=== PATIENT | female | born 1945 | race Native Hawaiian/Other Pacific Islander ===

== ENCOUNTER 2017-02-06 08:43 | Outpatient (CLI) | payer OTHER ==
[~2017-02-06 08:43] MED LIST: ASA LOW STR81 MG PO; B-1250 MCG OR; CETI10TA PO; DONNATA1 OR; GUAI600T70 PO; HYDR12.54; ICAPS MV OR; LEVO0.0723 PO; LEVO0.08 PO; LIPITOR20 MG PO; MEDROL DOSEPAK4 MG OR; NEXIUM40 M1 PO; OMEGA 31000 MG OR; POLY3350; PROPRANOLOL10 MG PO; RESTASIS0.05 % OP; SUCRALFATE1 GM OR; TIOTCAP2 INH; VALS80CA2 PO
== END 2017-02-06 19:04 | disposition home or self-care (01) ==
LOC: LABW 08:43
DX: E03.8 Other specified hypothyroidism (principal)
CPT/HCPCS: 36415; 84436; 84443; 84479

== ENCOUNTER 2017-03-03 11:50 | Outpatient (CLI) | payer OTHER | END 2017-03-03 12:50 | disposition home or self-care (01) | LOC: LAB 11:50 | DX: K52.9 Noninfective gastroenteritis and colitis, unspecified (principal) | CPT/HCPCS: 82272; 87045; 87205; 87328; 87329; 87493; 87798; 87899 ==

== ENCOUNTER 2017-03-23 08:29 | Outpatient (CLI) | payer OTHER | END 2017-03-23 19:05 | disposition home or self-care (01) | LOC: LABW 08:29 → CT 09:30 → LABW 19:05 | DX: E03.8 Other specified hypothyroidism (principal); J41.1 Mucopurulent chronic bronchitis | CPT/HCPCS: 36415; 84436; 84443; 84480 ==

== ENCOUNTER 2017-05-26 08:34 | Outpatient (CLI) | payer OTHER ==
[2017-05-26 09:11] LABS: PLATELET COUNT 220 K/uL (152-353)
[2017-05-26 09:36] LABS: POTASSIUM 3.8 mmol/L (3.6-5.2); SODIUM 140 mmol/L (136-145)
== END 2017-05-26 19:31 | disposition home or self-care (01) ==
LOC: LABW 08:34
PROVIDERS: Internal Medicine
DX: I10 Essential (primary) hypertension (principal); E55.9 Vitamin D deficiency, unspecified; E03.8 Other specified hypothyroidism; R82.99 Other abnormal findings in urine
CPT/HCPCS: 36415; 80053; 80061; 81000; 82306; 84439; 84443; 85027; 87086; 87088

== ENCOUNTER 2017-08-25 07:56 | Outpatient (CLI) | payer OTHER | END 2017-08-25 19:05 | disposition home or self-care (01) | LOC: RESP 07:56 | DX: J44.9 Chronic obstructive pulmonary disease, unspecified (principal) | CPT/HCPCS: 94640; 94664 ==

== ENCOUNTER 2017-10-11 08:54 | Outpatient (CLI) | payer OTHER ==
[2017-10-11 09:41] LABS: PLATELET COUNT 219 K/uL (152-353)
[2017-10-11 09:44] LABS: POTASSIUM 3.9 mmol/L (3.6-5.2); SODIUM 138 mmol/L (136-145)
== END 2017-10-11 10:20 | disposition home or self-care (01) ==
LOC: LABW 08:54
PROVIDERS: Internal Medicine
DX: I10 Essential (primary) hypertension (principal); I65.29 Occlusion and stenosis of unspecified carotid artery
CPT/HCPCS: 36415; 80053; 80061; 81000; 84439; 84443; 85027

== ENCOUNTER 2018-01-28 10:28 | Outpatient (CLI) | payer OTHER ==
[2018-01-28 11:03] LABS: PLATELET COUNT 217 K/uL (152-353)
== END 2018-01-28 11:28 | disposition home or self-care (01) ==
LOC: LABW 10:28
PROVIDERS: Internal Medicine
DX: D64.89 Other specified anemias (principal); E03.8 Other specified hypothyroidism
CPT/HCPCS: 36415; 84439; 84443; 85027

== ENCOUNTER 2018-06-01 08:22 | Outpatient (CLI) | payer OTHER ==
[2018-06-01 09:05] LABS: PLATELET COUNT 226 K/uL (152-353)
== END 2018-06-01 22:07 | disposition home or self-care (01) ==
LOC: LABW 08:22
PROVIDERS: Internal Medicine
DX: I10 Essential (primary) hypertension (principal); D64.89 Other specified anemias; E03.8 Other specified hypothyroidism; R82.99 Other abnormal findings in urine
CPT/HCPCS: 36415; 80053; 80061; 81000; 82306; 84443; 85027; 87077; 87086; 87088; 87185

== ENCOUNTER 2018-07-07 10:44 | Outpatient (CLI) | payer OTHER | END 2018-07-07 23:16 | disposition home or self-care (01) | LOC: RESP 10:44 | DX: J44.9 Chronic obstructive pulmonary disease, unspecified (principal); J43.2 Centrilobular emphysema ==

== ENCOUNTER 2018-07-11 12:31 | Outpatient (CLI) | payer OTHER | END 2018-07-11 21:15 | disposition home or self-care (01) | LOC: RAD 12:31 | DX: M54.2 Cervicalgia (principal) ==

== ENCOUNTER 2018-08-19 10:15 | Observation (INO) | payer OTHER ==
[~2018-08-19] VITALS: Ht 163.8 cm; Wt 54.7 kg
[2018-08-19 14:06] LABS: POTASSIUM 3.4 mmol/L (3.6-5.2)
[2018-08-19 14:13] LABS: PLATELET COUNT 219 K/uL (152-353)
[2018-08-19 14:22] LABS: PARTIAL THROMBOPLASTIN TIME 24.5 SECONDS (24.5-33.6)
[2018-08-19 14:44] VITALS: BP 132/60; TEMP 97.9; Ht 163.8 cm; Wt 54.7 kg
[2018-08-19 16:00] VITALS: BP 132/60; TEMP 97.9
[2018-08-19 20:00] VITALS: BP 107/63; TEMP 97.9
[2018-08-20 00:11] VITALS: BP 120/68; TEMP 97.5
[2018-08-20 04:00] VITALS: BP 99/57; TEMP 98.3
[2018-08-20 05:30] LABS: PLATELET COUNT 164 K/uL (152-353)
[2018-08-20 05:38] LABS: POTASSIUM 3.4 mmol/L (3.6-5.2)
[2018-08-20 08:24] VITALS: BP 116/52; TEMP 98.1
[2018-08-20 12:15] VITALS: TEMP 96.8
== END 2018-08-20 11:10 | disposition home or self-care (01) ==
LOC: MED/SURG 10:15
PROVIDERS: ADMIT Internal Medicine
DX: M94.0 Chondrocostal junction syndrome [Tietze] (principal); R07.89 Other chest pain; I10 Essential (primary) hypertension; I25.10 Atherosclerotic heart disease of native coronary artery without angina pectoris; E78.4 Other hyperlipidemia; E03.8 Other specified hypothyroidism; K21.9 Gastro-esophageal reflux disease without esophagitis; J44.9 Chronic obstructive pulmonary disease, unspecified; E78.00 Pure hypercholesterolemia, unspecified
CPT/HCPCS: 36415; 36591; 80053; 82550; 84484; 85027; 85610; 85730; 93005; 96374; 96375; 99220; G0378; G0379; J1650

== ENCOUNTER 2018-09-22 09:19 | Outpatient (CLI) | payer OTHER | END 2018-09-22 19:20 | disposition home or self-care (01) | LOC: LABW 09:19 | DX: E03.8 Other specified hypothyroidism (principal) | CPT/HCPCS: 36415; 84436; 84443; 84479 ==

== ENCOUNTER 2019-01-11 10:13 | Outpatient (CLI) | payer OTHER | END 2019-01-11 23:59 | disposition home or self-care (01) | LOC: LABW 10:13 | PROVIDERS: Internal Medicine Cardiovascular Disease | DX: E78.5 Hyperlipidemia, unspecified (principal) | CPT/HCPCS: 36415; 80061 ==

== ENCOUNTER 2019-01-11 19:27 | Emergency (ER) | payer OTHER ==
[~2019-01-11] VITALS: Ht 163.8 cm; Wt 54.4 kg
[2019-01-11 19:53] VITALS: TEMP 97.9
[2019-01-11 20:09] LABS: PLATELET COUNT 195 K/uL (152-353)
[2019-01-11 23:22] VITALS: BP 137/78
== END 2019-01-11 23:23 | disposition home or self-care (01) ==
LOC: ED 19:27
PROVIDERS: Emergency Medicine
DX: R07.89 Other chest pain (principal); K21.9 Gastro-esophageal reflux disease without esophagitis; I49.8 Other specified cardiac arrhythmias
CPT/HCPCS: 36415; 80053; 82550; 82553; 84484; 85027; 93005; 96374; 99284; J2270

== ENCOUNTER 2019-01-16 09:31 | Outpatient (CLI) | payer OTHER ==
[2019-01-16 10:19] LABS: POTASSIUM 4.1 mmol/L (3.6-5.2)
== END 2019-01-16 19:57 | disposition home or self-care (01) ==
LOC: LABW 09:31
PROVIDERS: Internal Medicine
DX: E87.6 Hypokalemia (principal); K21.9 Gastro-esophageal reflux disease without esophagitis; E03.9 Hypothyroidism, unspecified
CPT/HCPCS: 36415; 80053; 83735; 84439; 84443

== ENCOUNTER 2019-04-28 14:15 | Outpatient (CLI) | payer OTHER | END 2019-04-28 19:24 | disposition home or self-care (01) | LOC: RAD 14:15 | DX: J40 Bronchitis, not specified as acute or chronic (principal) ==

== ENCOUNTER 2019-07-17 15:20 | Outpatient (CLI) | payer OTHER | END 2019-07-17 18:00 | disposition home or self-care (01) | LOC: RAD 15:20 | DX: M54.2 Cervicalgia (principal); M25.511 Pain in right shoulder ==

== ENCOUNTER 2019-07-20 10:49 | Outpatient (CLI) | payer OTHER ==
[2019-07-20 11:28] LABS: POTASSIUM 3.7 mmol/L (3.6-5.2)
[2019-07-20 11:54] LABS: PLATELET COUNT 211 K/uL (152-353)
== END 2019-07-20 20:31 | disposition home or self-care (01) ==
LOC: LABW 10:49
PROVIDERS: Physician Assistant
DX: B00.89 Other herpesviral infection (principal)
CPT/HCPCS: 36415; 80053; 85007; 85027; 86618

== ENCOUNTER 2019-07-21 09:15 | Outpatient (CLI) | payer OTHER | END 2019-07-21 21:00 | disposition home or self-care (01) | LOC: LABW 09:15 | PROVIDERS: Physician Assistant | DX: B00.89 Other herpesviral infection (principal); E78.49 Other hyperlipidemia; E03.8 Other specified hypothyroidism; E55.9 Vitamin D deficiency, unspecified | CPT/HCPCS: 36415; 80061; 82306; 84443 ==

== ENCOUNTER 2019-10-05 11:33 | Emergency (ER) | payer OTHER ==
[~2019-10-05] VITALS: Ht 162.6 cm; Wt 54.9 kg
[2019-10-05 11:44] VITALS: TEMP 97.7
[2019-10-05 12:59] LABS: PLATELET COUNT 202 K/uL (152-353)
[2019-10-05 13:24] LABS: POTASSIUM 3.6 mmol/L (3.6-5.2)
[2019-10-05 14:45] VITALS: BP 150/74
== END 2019-10-05 14:45 | disposition home or self-care (01) ==
LOC: ED 11:33
PROVIDERS: Emergency Medicine Emergency Medical Services
DX: R51 Headache (principal); I10 Essential (primary) hypertension
CPT/HCPCS: 80053; 82550; 85027; 93005; 99283

== ENCOUNTER 2019-10-08 09:32 | Outpatient (CLI) | payer OTHER | END 2019-10-08 19:23 | disposition home or self-care (01) | LOC: LABW 09:32 | DX: E03.8 Other specified hypothyroidism (principal) | CPT/HCPCS: 36415; 84436; 84443; 84479 ==

== ENCOUNTER 2020-07-09 10:13 | Outpatient (CLI) | payer OTHER | END 2020-07-09 20:48 | disposition home or self-care (01) | LOC: CT 10:13 | DX: G44.211 Episodic tension-type headache, intractable (principal) ==

== ENCOUNTER 2020-07-23 12:47 | Outpatient (CLI) | payer OTHER ==
[2020-07-23 13:13] LABS: PLATELET COUNT 292 K/uL (152-353)
[2020-07-23 13:31] LABS: POTASSIUM 3.6 mmol/L (3.6-5.2)
== END 2020-07-23 20:31 | disposition home or self-care (01) ==
LOC: LABW 12:47
PROVIDERS: Internal Medicine
DX: I10 Essential (primary) hypertension (principal); E03.8 Other specified hypothyroidism; Z79.899 Other long term (current) drug therapy; R51 Headache
CPT/HCPCS: 36415; 80053; 81000; 82043; 82570; 83036; 83735; 84100; 84155; 84439; 84443; 85027; 85651; 86038

== ENCOUNTER 2020-07-31 10:29 | Outpatient (CLI) | payer OTHER | END 2020-08-01 | disposition home or self-care (01) | LOC: MRI 10:29 | DX: R51 Headache (principal) | CPT/HCPCS: A9576 ==

== ENCOUNTER 2020-09-18 12:50 | Outpatient (CLI) | payer OTHER ==
[2020-09-18 14:25] LABS: POTASSIUM 3.6 mmol/L (3.6-5.2)
== END 2020-09-18 20:13 | disposition home or self-care (01) ==
LOC: RESP 12:50
PROVIDERS: Internal Medicine Pulmonary Disease
DX: J43.2 Centrilobular emphysema (principal); Z79.899 Other long term (current) drug therapy
CPT/HCPCS: 36415; 80048; 84436; 84443; 84479

== ENCOUNTER 2021-01-15 08:49 | Outpatient (CLI) | payer OTHER ==
[2021-01-15 09:21] LABS: PLATELET COUNT 250 K/uL (152-353)
[2021-01-15 09:32] LABS: POTASSIUM 3.7 mmol/L (3.6-5.2)
== END 2021-01-15 21:39 | disposition home or self-care (01) ==
LOC: LABW 08:49
PROVIDERS: ATTEND Internal Medicine
DX: E03.8 Other specified hypothyroidism (principal); I10 Essential (primary) hypertension
CPT/HCPCS: 36415; 80053; 80061; 81000; 84439; 84443; 85027

== ENCOUNTER 2021-03-07 09:15 | Outpatient (CLI) | payer OTHER ==
[2021-03-07 09:46] LABS: PLATELET COUNT 212 K/uL (152-353)
== END 2021-03-07 19:50 | disposition home or self-care (01) ==
LOC: LABW 09:15
PROVIDERS: ATTEND Internal Medicine
DX: Z00.00 Encounter for general adult medical examination without abnormal findings (principal); I10 Essential (primary) hypertension; E03.8 Other specified hypothyroidism; Z13.820 Encounter for screening for osteoporosis; E55.9 Vitamin D deficiency, unspecified
CPT/HCPCS: 36415; 80053; 80061; 81000; 82306; 84439; 84443; 85027

== ENCOUNTER 2021-05-16 09:32 | Outpatient (CLI) | payer OTHER | END 2021-05-17 23:59 | disposition home or self-care (01) | LOC: RESP 09:32 | PROVIDERS: ATTEND Internal Medicine Pulmonary Disease | DX: J43.2 Centrilobular emphysema (principal) ==

== ENCOUNTER 2021-07-24 10:52 | Outpatient (CLI) | payer OTHER | END 2021-07-24 20:16 | disposition home or self-care (01) | LOC: US 10:52 | PROVIDERS: ATTEND Internal Medicine Cardiovascular Disease | DX: R09.89 Other specified symptoms and signs involving the circulatory and respiratory systems (principal) ==

== ENCOUNTER 2021-09-17 08:49 | Outpatient (CLI) | payer OTHER ==
[2021-09-17 09:13] LABS: PLATELET COUNT 244 K/uL (152-353)
[2021-09-17 09:41] LABS: POTASSIUM 3.6 mmol/L (3.6-5.2)
== END 2021-09-17 21:50 | disposition home or self-care (01) ==
LOC: LABW 08:49
PROVIDERS: ATTEND Internal Medicine
DX: I10 Essential (primary) hypertension (principal); E03.8 Other specified hypothyroidism
CPT/HCPCS: 36415; 80053; 80061; 81000; 84439; 84443; 85027

== ENCOUNTER 2022-01-20 08:13 | Outpatient (CLI) | payer OTHER ==
[2022-01-20 08:31] LABS: PLATELET COUNT 224 K/uL (152-353)
[2022-01-20 09:05] LABS: POTASSIUM 3.5 mmol/L (3.6-5.2)
== END 2022-01-20 18:51 | disposition home or self-care (01) ==
LOC: LABW 08:13
PROVIDERS: ATTEND Internal Medicine
DX: I10 Essential (primary) hypertension (principal); E03.8 Other specified hypothyroidism
CPT/HCPCS: 36415; 80053; 80061; 81000; 84439; 84443; 85027

== ENCOUNTER 2022-01-29 14:07 | Outpatient (CLI) | payer OTHER | END 2022-01-29 19:22 | disposition home or self-care (01) | LOC: RAD 14:07 | PROVIDERS: ATTEND Internal Medicine | DX: M79.671 Pain in right foot (principal); M25.571 Pain in right ankle and joints of right foot ==

== ENCOUNTER 2022-04-30 16:36 | Emergency (ER) | payer OTHER ==
[~2022-04-30] VITALS: Ht 162.6 cm; Wt 54.9 kg
[2022-04-30 16:43] VITALS: BP 133/46; TEMP 98
== END 2022-04-30 17:30 | disposition home or self-care (01) ==
LOC: ED 16:36
DX: M54.59 Other low back pain (principal); G89.29 Other chronic pain
CPT/HCPCS: 96372; 99283; J1885; J2930

== ENCOUNTER 2022-05-01 15:09 | Inpatient (IN) | payer OTHER ==
[2022-05-01] VITALS (11 sets, daily range): BP systolic 105–146; BP diastolic 46–68; TEMP 97.7–98.3; Ht 162.6 cm; Wt 54.9 kg
[~2022-05-01] VITALS: Ht 162.6 cm; Wt 54.9 kg
[2022-05-01 16:03] LABS: PLATELET COUNT 204 K/uL (152-353)
[2022-05-01 16:18] LABS: POTASSIUM 4.7 mmol/L (3.6-5.2)
[2022-05-01 19:02] LABS: POTASSIUM 3.7 mmol/L (3.6-5.2)
[2022-05-02 03:48] VITALS: BP 85/52; TEMP 98.6
[2022-05-02 05:21] LABS: POTASSIUM 4.3 mmol/L (3.6-5.2)
[2022-05-02 05:57] LABS: PLATELET COUNT 178 K/uL (152-353)
[2022-05-02] MEDS ORDERED: FLOVENT HF44 MCG/ACT INH ×2 (06:27)
[2022-05-02] MEDS ORDERED: GABA300C2 PO ×2 (06:29)
[2022-05-02] MEDS ORDERED: CLINDAMYCIN HY300 MG PO ×2 (06:38)
[2022-05-02] MEDS ORDERED: KETOROLAC10 MG PO ×2 (06:40)
[2022-05-02] MEDS ORDERED: CETIRIZINE HYDR10 MG PO ×2 (06:41)
[2022-05-02] MEDS ORDERED: DONNATAL PO ×2 (07:06)
[2022-05-02] MEDS ORDERED: VALS160T2 PO ×2 (07:07)
[2022-05-02] MEDS ORDERED: HYDROCHLOROT12.5 M1 PO ×2 (07:11)
[2022-05-02] MEDS ORDERED: MONTELUKAST SOD10 MG PO ×2 (07:15)
[2022-05-02 08:00] VITALS: BP 119/49; TEMP 98.7
[2022-05-02 12:00] VITALS: BP 116/46; TEMP 98.3
[2022-05-02 15:02] LABS: POTASSIUM 4.3 mmol/L (3.6-5.2)
[2022-05-02] MEDS ORDERED: METHYLPRED4 M1 ×2 (15:51)
[2022-05-02 16:00] VITALS: BP 88/61; TEMP 98
[2022-05-02 19:47] VITALS: BP 100/43; TEMP 98
[2022-05-02 23:50] VITALS: BP 139/66; TEMP 97.8
[2022-05-03 04:04] VITALS: BP 134/61; TEMP 98.1
[2022-05-03 04:58] LABS: POTASSIUM 4.4 mmol/L (3.6-5.2)
[2022-05-03 05:04] LABS: PLATELET COUNT 201 K/uL (152-353)
[2022-05-03 08:00] VITALS: BP 128/58; TEMP 97.9
[2022-05-03 12:00] VITALS: BP 119/51; TEMP 98.3
== END 2022-05-03 13:15 | disposition home or self-care (01) | DRG 392 ==
LOC: ED 15:09 → MED/SURG 20:03
PROVIDERS: Emergency Medicine; ADMIT Internal Medicine; ATTEND Internal Medicine
DX: R11.2 Nausea with vomiting, unspecified (principal); E87.1 Hypo-osmolality and hyponatremia; I95.89 Other hypotension; K21.9 Gastro-esophageal reflux disease without esophagitis; E03.8 Other specified hypothyroidism; J44.9 Chronic obstructive pulmonary disease, unspecified; I10 Essential (primary) hypertension; M19.90 Unspecified osteoarthritis, unspecified site
CPT/HCPCS: 36415; 80048; 80053; 81000; 82533; 82607; 82728; 82746; 83540; 83735; 83930; 83935; 84133; 84300; 84439; 84443; 84484; 85027; 87635; 96360; 96361; 96365; 99284; J2405; U0003

== ENCOUNTER 2022-05-12 08:10 | Outpatient (CLI) | payer OTHER ==
[~2022-05-12 08:10] MED LIST changes: +CETIRIZINE HYDR10 MG PO; +CLINDAMYCIN HY300 MG PO; +DONNATAL PO; +FLOVENT HF44 MCG/ACT INH; +GABA300C2 PO; +HYDROCHLOROT12.5 M1 PO; +KETOROLAC10 MG PO; +METHYLPRED4 M1; +MONTELUKAST SOD10 MG PO; +VALS160T2 PO
[2022-05-12 08:37] LABS: PLATELET COUNT 327 K/uL (152-353)
[2022-05-12 09:03] LABS: POTASSIUM 3.8 mmol/L (3.6-5.2)
== END 2022-05-12 18:56 | disposition home or self-care (01) ==
LOC: LABW 08:10
PROVIDERS: ATTEND Internal Medicine
DX: D64.89 Other specified anemias (principal); R11.2 Nausea with vomiting, unspecified; E03.8 Other specified hypothyroidism
CPT/HCPCS: 36415; 80053; 81000; 84439; 84443; 85027

== ENCOUNTER 2022-09-03 10:53 | Outpatient (CLI) | payer OTHER | END 2022-09-03 19:11 | disposition home or self-care (01) | LOC: MAMMO 10:53 | PROVIDERS: ATTEND Obstetrics & Gynecology | DX: Z12.31 Encounter for screening mammogram for malignant neoplasm of breast (principal) ==

== ENCOUNTER 2022-10-20 14:59 | Outpatient (CLI) | payer OTHER | END 2022-10-20 20:17 | disposition home or self-care (01) | LOC: RESP 14:59 | PROVIDERS: ATTEND Physician Assistant | DX: J43.2 Centrilobular emphysema (principal) ==

== ENCOUNTER → 2022-11-04 | Outpatient (CLI) | payer OTHER ==
[2022-11-04 13:47] LABS: PLATELET COUNT 226 K/uL (152-353)
[2022-11-04 14:11] LABS: POTASSIUM 3.4 mmol/L (3.6-5.2)
== END ==
LOC: LABW 08:12
PROVIDERS: ATTEND Internal Medicine
DX: I10 Essential (primary) hypertension (principal); E78.2 Mixed hyperlipidemia; D64.9 Anemia, unspecified
CPT/HCPCS: 36415; 80053; 80061; 82570; 82607; 82728; 82746; 83540; 83550; 84156; 85027

== ENCOUNTER 2022-11-27 14:06 | Outpatient (CLI) | payer OTHER | END 2022-11-27 23:39 | disposition home or self-care (01) | LOC: MAMMO 14:06 | PROVIDERS: ATTEND Obstetrics & Gynecology | DX: R92.8 Other abnormal and inconclusive findings on diagnostic imaging of breast (principal) ==

== ENCOUNTER 2023-01-13 07:46 | Outpatient (CLI) | payer OTHER | END 2023-01-13 18:54 | disposition home or self-care (01) | LOC: LABW 07:46 | PROVIDERS: ATTEND Internal Medicine | DX: E03.8 Other specified hypothyroidism (principal) | CPT/HCPCS: 36415; 84439; 84443 ==

== ENCOUNTER 2023-04-22 07:52 | Outpatient (CLI) | payer OTHER ==
[2023-04-22 08:30] LABS: PLATELET COUNT 240 K/uL (152-353)
[2023-04-22 09:08] LABS: POTASSIUM 3.8 mmol/L (3.6-5.2)
== END 2023-04-22 17:00 ==
LOC: LABW 07:52
PROVIDERS: ATTEND Internal Medicine
DX: N18.2 Chronic kidney disease, stage 2 (mild) (principal); E03.8 Other specified hypothyroidism; E78.2 Mixed hyperlipidemia; D64.89 Other specified anemias; E67.3 Hypervitaminosis D
CPT/HCPCS: 36415; 80053; 80061; 81002; 82043; 82306; 82330; 82550; 82570; 82607; 82728; 82746; 83540; 83550; 83735; 83970; 84100; 84156; 84439; 84443; 84550; 85027